=== PATIENT | female | born 1950 | race Two or more races ===

== ENCOUNTER 2018-05-20 17:03 | Observation (INO) | payer MEDICARE, BC ==
[~2018-05-20] VITALS: Ht 170.2 cm; Wt 96.4 kg
--- NOTE | ~2018-05-20 | DS ---
PATIENT:KELLY ROBERTS :[birth year] MEDICAL RECORD: [id number] DISCHARGE SUMMARY ADMISSION DATE: 05/20/18 DISCHARGE DATE: 05/21/18 DATE OF DISCHARGE: 05/21/2018. DIAGNOSIS: Atrial fibrillation. HOSPITAL COURSE: Ms. Roberts presents with palpitations, tachycardia, found to be in atrial fibrillation with rapid ventricular response, given Cardizem and sotalol, converted to sinus rhythm and was discharged home on sotalol. Follow up with [facility] in a month. TRANSINT:[id number] Voice Confirmation ID: [id number] DOCUMENT ID: [id number] FREDERICK VALIENTE MD at 1950 CC: [id number] DICTATION DATE: 07/02/18 1154 CUT OFF MACHINE HELPER: 07/02/18 1228 DIS IN 05/21/18 [address] [place] [address]
--- NOTE | ~2018-05-20 | EC ---
PATIENT:KELLY ROBERTS DATE OF SERVICE: 05/20/18 SEX: F MEDICAL RECORD: [id number] DATE OF : [birth year] LOCATION:D.M2 D.211 AGE OF PATIENT: 68 ADMISSION DATE: 05/20/18 REFERRING PHYSICIAN: INTERPRETING PHYSICIAN: FREDERICK BAKER MD ECHOCARDIOGRAM REPORT ECHO CHARGES 4 ECHO COMPLETE Date: 05/21 CLINICAL DIAGNOSIS: A-FLUTTER ECHOCARDIOGRAPHIC MEASUREMENTS (adult normal given) AC root (d.<3.7cm) 2.9 cm LV Septum d (<1.2 cm> 1.5 cm Valve Excursion 1.8 cm LV Septum (systole) 2. cm Left Atria (s.<4.0cm> 3.8 cm LVPW d(<1.2cm) 1.3 cm RV (d.<2.3cm) 2.8 cm LVPW (sytole) 1.9 cm LV diastole(<5.6CM) 6.0 cm MV E-F(>70mm/sec) cm LV systole 3.3 cm LVOT Diameter 1.9 cm MV exc.(>10mm) cm Est.ejection fraction (50-75%) % DOPPLER: LVIT cm/sec A 52.0 cm/sec E 129 cm/sec LA cm/sec RVSP 49.1 mmHg LVOT 89.0 cm/sec AOP1/2T m/s Asc. Ao 136 cm/sec RVOT 71.0 cm/sec RA cm/sec PA 88.0 cm/sec AV Gradient Peak 7.4 mmHg AV Mean 3.8 mmHg AV Area 1.9 cm MV Gradient Peak 7.6 mmHg MV Mean 2.4 mmHg MV Area cm COMMENTS: Game Room Attendant: 1 MICKEY FLETCHEROE Lung Splitter: 1 Dr. Baker TAPE# PACS Pericardial Effusion N DATE OF SERVICE: FINDINGS: 1. Left ventricular chamber size is within normal limits. Left ventricular systolic function is normal. Overall ejection fraction estimated at 55%. 2. Left atrium, right atrium, and right ventricle chamber sizes are within normal limits. 3. Valvular structures have normal structure and motion. 4. Doppler interrogation reveals moderate mitral regurgitation, mild tricuspid regurgitation, no other valvular insufficiency or stenosis; however, pulmonary ECHOCARDIOGRAM REPORT [id number] KELLY ROBERTS systolic pressure is elevated estimated at 49 mmHg. 5. No evidence of pericardial effusion or left ventricular thrombus. TRANSINT:[id number] Voice Confirmation ID: [id number] DOCUMENT ID: [id number] FREDERICK BAKER MD at 1325 CC: [id number] DICTATION DATE: 05/21/18 1113 CARBURETOR REPAIRER: 05/21/18 1151 DIS IN 05/21/18 [facility] [address] [id number]
[2018-05-20] MEDS ORDERED: AMITRIPTYLINE H50 MG PO (17:22)
[2018-05-20] MEDS ORDERED: CALCIUM 500 + D1 TAB PO (17:23)
[2018-05-20] MEDS ORDERED: ASPIRIN EC81 M1 PO (17:23)
[2018-05-20] MEDS ORDERED: LASIX20 MG PO (17:24)
[2018-05-20] MEDS ORDERED: SURFAK240 MG PO (17:24)
[2018-05-20] MEDS ORDERED: VITAMIN B-1000 MCG/M SQ (17:24)
[2018-05-20] MEDS ORDERED: HUMALOG 30100 UNITS/ SC (17:26)
[2018-05-20] MEDS ORDERED: ZESTRIL40 MG PO (17:26)
[2018-05-20] MEDS ORDERED: LANTUS INSULIN10 ML SQ (17:26)
[2018-05-20] MEDS ORDERED: MAGNESIUM OXID500 MG PO (17:27)
[2018-05-20] MEDS ORDERED: BIOTIN5 MG PO (17:28)
[2018-05-20] MEDS ORDERED: LIVALO1 MG PO (17:29)
[2018-05-20 18:00] VITALS: BP 201/122
[2018-05-20 18:14] LABS: APPEARANCE CLEAR (CLEAR); BILIRUBIN NEGATIVE (NEGATIVE); COLOR YELLOW (YELLOW); GLUCOSE NEGATIVE (NEGATIVE); KETONE NEGATIVE (NEGATIVE); NITRITE NEGATIVE (NEGATIVE); PROTEIN TRACE mg/dL (NEGATIVE); UROBILINOGEN NORMAL (NORMAL)
[2018-05-20 18:16] LABS: BACTERIA MODERATE /hpf (NONE SEEN); EPITHELIAL CELLS 0-5 /hpf (0-5); WHITE CELLS - URINE 0-5 /hpf (0-5)
[2018-05-20 18:18] LABS: BASOPHILS 0.6 % (0-2); HEMATOCRIT 28.8 % (36.0-48.0); HEMOGLOBIN 10.1 g/dL (12-16); IMMATURE GRANULOCYTES 0.2 % (0-5); LYMPHOCYTES 23.9 % (15-50); MCH 30.3 pg (26.0-34.0); MCHC 35.1 g/dL (31.0-37.0); MCV 86.5 fL (80.0-100.0); MEAN PLATELET VOLUME 9.1 fL (7.4-10.4); MONOCYTES 6.6 % (2-11); NEUTROPHILS 66.7 % (40-80); PLATELET COUNT 288 10x3/uL (130-400); RBC 3.33 10x6/uL (4.00-5.40); RDW 12.3 % (11.5-14.5)
[2018-05-20 18:26] VITALS: BP 187/110
[2018-05-20 18:40] VITALS: BP 153/84
[2018-05-20 18:53] LABS: ALBUMIN 3.6 g/dL (3.4-5.0); ALKALINE PHOSPHATASE 84 U/L (46-116); ALT (SGPT) 21 U/L (10-68); BILIRUBIN - TOTAL 0.48 mg/dL (0.2-1.3); CALC OSMOLALITY 286 mosm/kg (275-300); CALCIUM 8.6 mg/dL (8.5-10.1); CARBON DIOXIDE 26.5 mmol/L (21.0-32.0); CHLORIDE - SERUM 101 mmol/L (98-107); CREATININE - SERUM 2.1 mg/dL (0.6-1.3); GLUCOSE 183 mg/dL (74-106); POTASSIUM - SERUM 4.1 mmol/L (3.5-5.1); PROTEIN - SERUM 7.1 g/dL (6.4-8.2); SODIUM 137 mmol/L (136-145); UREA NITROGEN 34 mg/dL (7-18); eGFR NON AFRICAN AMERICAN 25 mL/min (90-120)
[2018-05-20 19:01] VITALS: BP 150/79
[2018-05-20 19:02] LABS: CKMB 2.6 U/L (0.0-3.6)
[2018-05-20 19:03] LABS: APTT 25.2 SECONDS (22.8-39.4); INR 0.99 (0.85-1.17); PROTIME 12.7 SECONDS (11.6-15.0)
[2018-05-20 19:05] LABS: TROPONIN-I < 0.017 ng/mL (0.000-0.060)
[2018-05-20 19:33] LABS: MAGNESIUM - SERUM 1.8 mg/dL (1.8-2.4)
[2018-05-20 20:00] VITALS: BP 147/92; BP 192/104
[2018-05-21] VITALS: BP 126/55
[2018-05-21 04:00] VITALS: BP 132/70
[2018-05-21 04:16] LABS: ANION GAP 10.5 mmol/L (8-16); CALCIUM 8.3 mg/dL (8.5-10.1); CARBON DIOXIDE 27.3 mmol/L (21.0-32.0); CREATININE - SERUM 2.1 mg/dL (0.6-1.3); POTASSIUM - SERUM 3.8 mmol/L (3.5-5.1)
[2018-05-21 05:30] VITALS: BP 194/102; BMI 33.3
[2018-05-21 08:36] VITALS: Ht 170.2 cm; Wt 96.4 kg
[2018-05-21 08:54] VITALS: BP 138/74
[2018-05-21] MEDS ORDERED: CARDIZEM CD240 MG PO (12:42)
== END 2018-05-21 13:24 | disposition home or self-care (01) ==
LOC: D.ER 17:03 → D.M2 19:39 → OBSVTIME 19:40 → D.M2 05-21 13:24
PROVIDERS: Emergency Medicine; Family Medicine
DX: I48.92 Unspecified atrial flutter (principal); I10 Essential (primary) hypertension; E78.5 Hyperlipidemia, unspecified; E11.9 Type 2 diabetes mellitus without complications; E86.0 Dehydration; N17.9 Acute kidney failure, unspecified

== ENCOUNTER 2018-06-27 10:54 | Outpatient (CLI) | payer MEDICARE, BC ==
[~2018-06-27] VITALS: Ht 170.2 cm; Wt 100.0 kg
--- NOTE | ~2018-06-27 | HEMODYNAMI ---
PATIENT:KELLY ROBERTS MEDICAL RECORD: [id number] : 48 LOCATION:[facility]IE ADMISSION DATE: 06/27/18 Generatedon:06/27/201813:25 Patient name: KELLY ROBERTS Patient #: [id number] SSN: : 1950 Date of study: 06/27/2018 Page: Of Hemodynamic Procedure Report Patient Data Patient Demographics Procedure consent was obtained First Name: KELLY Gender: Female Last Name: AELJANDRA : 1950 Patient #: [id number] Age: 68 year(s) Race: Other Additional ID: [id number] Contact details [address]: [address] [place] [address] State: [place] City: [place] Zip code: [address] Admission Admission Data Admission Date: 06/27/2018 Admission Time: 10:54 Admit Source: Other Procedure Procedure Types Cath Procedure Diagnostic Procedure LHC LHC w/Coronaries Procedure Description Procedure Date Procedure Date: 06/27/2018 Procedure Start Time: 13:14 Procedure End Time: 13:22 Procedure Staff Name Function Yaya Wiley MD Performing Physician Yoel Bui RT Monitor Sai Jurado RT Scrub Beau Pace RN Nurse Procedure Data Cath Procedure Fluoroscopy Diagnostic fluoroscopy Total fluoroscopy Time: 1.5 time: 1.5 min min Diagnostic fluoroscopy Total fluoroscopy dose: 244 dose: 244 mGy mGy Contrast Material Contrast Material Type Amount (ml) Isovue 300 50 Entry Location Entry Primary Successful Side Size Upsize Upsize Entry Closure Gamino ccessful Closure Location (Fr) 1 (Fr) 2 (Fr) Remarks Device Remarks Radial Right 6 Fr Mechanical artery Short Compression Estimated blood loss: 10 ml Diagnostic catheters Device Type Used For End Catheter Placement DIAGNOSTIC [place] 110cm 5 Procedure Fr catheter ([id number]) Procedure Complications No complications Procedure Medications Medication Administration Route Dosage Oxygen etCO2 Nasal cannula 2 l/min Heparin Flush Bag added to field 2 bags (1000units/500ml NS) 0.9% NaCl I.V. 100 ml/hr Radial Cocktail added to field 1 syringe (Verapomil 2mg/Nitro 400mcg/Heparin 1500units) Fentanyl I.V. 25 mcg Versed I.V. 0.5 mg Fentanyl I.V. 25 mcg Versed I.V. 0.5 mg Radial Cocktail I.A. 1 syringe (Verapomil 2mg/Nitro 400mcg/Heparin 1500units) Fentanyl I.V. 50 mcg Versed I.V. 1 mg Hemodynamics Rest Heart Rate: 63 (bpm) Pressure Samples Time Site Value (mmHg) Purpose Heart Use Rate(bpm) 13:17 LV 160/14,22 Snapshot 61 13:17 AO 147/86(112) Pullback 60 13:17 LV 120/21,10 Pullback 60 Gradients Valve Time Site 1 Site 2 Mean SEP/DFP Peak To Heart Use (mmHg) (sec/min) Peak Rate (mmHg) (bpm) Aortic 13:17 LV AO 0 60 120/21,10 147/86(112) Calculations Valve P-P Mean Valve Index Valve Source Name Gradient Area Flow (cm2) Aortic 0 0 Snapshots Pre Cath Intra NCS Post Cath Vital Signs Time Heart Resp SPO2 etCO2 NIBP (mmHg) Rhythm Pain Sedation Rate (ipm) (%) (mmHg) Status Level (bpm) 13:06:01 62 17 93 27 175/93(157) NSR 0 (11) 10(A) , No pain 13:10:33 61 17 93 30.1 179/99(159) NSR 0 (11) 10(A) , No pain 13:15:08 61 17 93 24 177/100(147) NSR 0 (11) 10(A) , No pain 13:19:32 58 16 92 28.6 158/81(137) NSR 0 (11) 9(A) , No pain 13:23:33 60 17 92 21.8 159/89(139) NSR 0 (11) 9(A) , No pain Medications Time Medication Route Dose Verified Delivered Reason Notes Effectiveness by by 13:04:43 Oxygen etCO2 2 l/min Yaya Yanez Per Nasal [facility] Amos Pace RN physician cannula 13:04:52 Heparin Flush added 2 bags Yaya Yanez used for Bag to [facility] Amos Pace wing commander (1000units/500ml field PHELAN NS) 13:05:02 0.9% NaCl I.V. 100 Yaya Yanez Per ml/hr St Amos Pace RN physician 13:05:10 Radial Cocktail added 1 Yaya Yanez used for (Verapomil to syringe [facility] Amos Pace wing commander 2mg/Nitro field PHELAN 400mcg/Heparin 1500units) 13:09:19 Fentanyl I.V. 25 mcg Yaya Yanez for sedation St Amos Pace RN, MD 13:09:25 Versed I.V. 0.5 mg Yaya Yanez for sedation St Amos Pace RN, MD 13:13:39 Fentanyl I.V. 25 mcg Yaya Yanez for sedation St Amos Pace RN, MD 13:13:44 Versed I.V. 0.5 mg Yaya Yanez for sedation St Amos Pace RN, MD 13:16:16 Radial Cocktail I.A. 1 Yaya Javier for (Verapomil syringe [place] [facility] [place] vasodilation 2mg/Nitro MD PHELAN 400mcg/Heparin 1500units) 13:16:24 Fentanyl I.V. 50 mcg Yaya Javier for sedation St Amos Wiley MD, MD 13:16:27 Versed I.V. 1 mg Yaya Barkerory for sedation St Amos Wiley MD, MD Procedure Log Time Note 12:40:12 Yoel Bui RT(R) sent for patient. Start room use. 12:40:40 Informed consent obtained and on chart 12:40:44 Admit Source: Other 12:41:08 Diagnostic Cath status Elective 12:51:37 Patient received from Pre/Post Procedure Room to CCL 3 Alert and oriented. Tansferred to table in Supine position. 12:51:38 Warm blankets applied, and lita hugger turned on for patient comfort. 12:51:39 Correct patient and procedure confirmed by team. 12:51:39 ECG and BP/O2 sat monitors applied to patient. 12:51:50 H&P Date Dictated: 06/25/2018 Within 30 days and on chart., H&P Addendum completed by physician on day of procedure. (MUST COMPLETE FOR ALL OUTPATIENTS). 13:04:39 Vital chart was started 13:04:43 Oxygen 2 l/min etCO2 Nasal cannula was administered by Beau Pace RN; Per physician; 13:04:52 Heparin Flush Bag (1000units/500ml NS) 2 bags added to field was administered by Beau Pace RN; used for procedure; 13:05:02 0.9% NaCl 100 ml/hr I.V. was administered by Beau Pace RN; Per physician; 13:05:10 Radial Cocktail (Verapomil 2mg/Nitro 400mcg/Heparin 1500units) 1 syringe added to field was administered by Beau Pace RN; used for procedure; 13:05:20 Baseline sample Acquired. 13:05:26 Rhythm: sinus rhythm 13:05:28 Full Disclosure recording started 13::29 Pre-procedure instructions explained to patient. 13:05:29 Pre-op teaching completed and patient verbalized understanding. 13:05:34 Family in patients room. 13:05:42 Is the patient allergic to Iodine/contrast media? No. 13:05:59 Patient NPO since Midnight. 13:06:03 Is patient on blood thinner?No 13:06:23 Patient diabetic? Yes. 13:06:25 If diabetic: On Metformin? No 13:06:29 Previous problem with sedation/anesthesia? No ? 13:06:31 Snore? No 13:06:32 Sleep apnea? No 13:06:34 Deviated septum? No 13:06:34 Opens mouth fully? Yes 13:06:35 Sticks out tongue? Yes 13:06:42 Airway obstruction? No ? 13:06:45 Dentures? No ? 13:06:49 Pre procedure: right dorsailis pedis pulse 1+ Palpable, but thready & weak; easily obliterated 13:06:56 Modified Usama's test Ulnar < 7 seconds 13:07:04 Patient pain scale 0/10 ?. 13:07:10 IV patent on arrival in left hand with 0.9% NaCl at O. 13:07:13 Lab results completed and on chart. 13:07:19 Right Radial & Right Groin area was prepped with chlora-prep and draped in sterile fashion 13:07:21 Alarms reviewed by R. N. 13:07:21 Sharps counted by scrub and verified by R.N. 13:08:56 --------ALL STOP TIME OUT------ 13:08:57 Final Timeout: patient, procedure, and site verified with staff and physician. All members of the team are in agreement. 13:09:00 Right Radial & Right Groin site verified by team. 13:09:02 Physical assessment completed. ASA score P 2 - A patient with mild systemic disease as per Yaya Wiley MD. 13:09:06 Sedation plan: IV Moderate Sedation Medication:Versed, Fentanyl 13:09:19 Fentanyl 25 mcg I.V. was administered by Beau Pace RN; for sedation; 13:09:25 Versed 0.5 mg I.V. was administered by Beau Pace RN; for sedation; 13:13:39 Fentanyl 25 mcg I.V. was administered by Beau Pace RN; for sedation; 13:13:44 Versed 0.5 mg I.V. was administered by Beau Pace RN; for sedation; 13:14:11 Use device set Radial Dx or PCI 13:14:15 ACIST Manifold (69064) opened to sterile field. 13:14:16 Tegaderm 4 x 4 (1626W) opened to sterile field. 13:14:17 ACIST Hand Control (46001) opened to sterile field. 13:14:18 ACIST Syringe (35046) opened to sterile field. 13:14:18 Medline Cath Pack ([id number]) opened to sterile field. 13:14:19 Bag Decanter (2002S) opened to sterile field. 13:14:19 DIAGNOSTIC WIRE .035 260cm J wire (322646) opened to sterile field. 13:14:20 MBrace Wrist Support ([id number]) opened to sterile field. 13:14:22 SHEATH 6Fr Prelude Radial ([id number]) opened to sterile field. 13:14:27 Procedure started. 13:14:32 Local anesthetic to right radial artery with Lidocaine 2% by Yaya Wiley MD.INITIAL ACCESS ONLY 13:15:01 Zero performed for pressure channel P1 13:15:20 A 6 Fr Short sheath was inserted into the Right Radial artery 13:16:09 A DIAGNOSTIC [place] 110cm 5 Fr catheter (673970) was advanced over the wire and used for Procedure. 13:16:16 Radial Cocktail (Verapomil 2mg/Nitro 400mcg/Heparin 1500units) 1 syringe I.A. was administered by Yaya Wiley MD; for vasodilation; 13:16:24 Fentanyl 50 mcg I.V. was administered by Yaya Wiley MD; for sedation; 13:16:27 Versed 1 mg I.V. was administered by Yaya Wiley MD; for sedation; 13:17:37 LV angiography performed. 13:17:39 LV gram done using OLIVARES 13:17:55 EF : 40 % 13:18:41 LV hemodynamics recorded. 13:18:44 Injector settings: Ml/sec: 7, Volume: 15, 13:18:48 LCA angiography performed. 13:19:23 RCA angiography performed. 13:19:40 Catheter removed. 13:19:42 TR BAND Standard ([id number]) opened to sterile field. 13:19:53 Sheath removed intact; hemostasis achieved with Mechanical Compression to the Right Radial artery. 13:19:57 Insertion/operative site no bleeding no hematoma. 13:19:59 TR band inflated with 12cc of air. 13:20:02 Procedure ended.(Physican Out) 13:20:41 Fluoroscopy time 01.50 minutes. 13:20:45 Fluoroscopy dose: 244 mGy 13:20:45 Flurop Dose total: 244 13:20:49 Contrast amount:Isovue 300 50ml. 13:20:51 Sharps counted by scrub and verified by R.N. 13:20:55 Post Procedure Pulses reassessed and unchanged 13:20:58 Post-procedure physical assessment completed. ASA score P 2 - A patient with mild systemic disease as per Yaya Wiley MD. 13:21:00 Post procedure rhythm: unchanged. 13:21:03 Estimated blood loss: 10 ml 13:21:05 Post procedure instruction explained to patient.Patient verbalizes understanding. 13:21:05 Patient needs reinforcement of post procedure teaching. 13:21:11 Procedure and supply charges have been captured, reviewed, submitted and are correct. 13:21:15 Procedure Complication : No complications 13:21:58 Vital chart was stopped 13:21:58 See physician's report for complete and final results. 13:22:01 Report given to Pre/Post Procedure Room. 13:22:03 Patient transfered to Pre/Post Procedure Room with Stretcher. 13:22:06 Procedure ended. 13:22:06 Full Disclosure recording stopped 13:24:58 End room use (Document Last) Device Usage Item Name Manufacture Quantity Catalog Number Hospital Part Current M inimal Lot# / Charge Number Stock Stock Serial# Code ACIST Manifold Acist 1 53560 651856 066979 994920 5 (63931) [employer] Inc Tegaderm 4 x 4 3M 1 1626W 107312 071496 990893 5 (1626W) ACIST Hand Acist 1 78545 714532 090252 746372 5 Control (06661) [employer] Inc ACIST Syringe Acist 1 32666 277369 670880 859821 2 0 (26248) [employer] Systems Inc Medline Cath Cardinal 1 [id number] 013131 08571 865696 5 Pack Health ([id number]) Bag Decanter Microtek 1 2002S 042343 59677 939414 5 (2001S) Medical Inc. DIAGNOSTIC WIRE [facility] [place] 1 456053 176619 131652 498076 3 0 .035 260cm J wire (178180) MBrace Wrist Advanced 1 140-0250-00 381608 69997 875331 5 Support Vascular ([id number]) Dynamics SHEATH 6Fr Merit 1 [id number] 064955 387710 879870 5 Prelude Radial Medical ([id number]) DIAGNOSTIC Terumo 1 40-8741 830201 133803 334169 5 [place] 110cm 5 Fr catheter (348612) TR BAND Terumo 1 TWO73-FMX 631963 437961 446662 4 0 Standard ([id number]) Signature Audit [place] Stage Time Signature Unsigned Intra-Procedure 06/27/2018 Yoel Bui 1:25:16 PM RT(R) Signatures Monitor : Yoel Bui RT Signature : Date : Time : [facility] [address] [place] [address]
--- NOTE | ~2018-06-27 | OP ---
PATIENT NAME: KELLY ROBERTS MEDICAL RECORD: [id number] :48 LOCATION:D.CAT ADMISSION DATE: SURGEON: YEIMY BLANCHARD MD DATE OF OPERATION: 06/27/2018 PROCEDURE: Left heart catheterization, selective coronary angiography, right radial approach. CATHETERS: [place] catheter, radial sheath. The procedure was well tolerated. The patient returned to the pineda. Sheath was removed. TR band was placed. FINDINGS: Left ventriculography in 30-degree OLIVARES view shows global hypokinesis. Overall function is reduced at 35% to 40%. CORONARY ANATOMY: LEFT MAIN: Left main is free of disease. LAD: Free of disease in the diagonal system. CIRCUMFLEX: Free of disease in the marginal system. RIGHT CORONARY ARTERY: Dominant artery, gives rise to PDA, free of disease. IMPRESSION: Nonischemic cardiomyopathy. EF is mildly reduced. This may be secondary to previous AFib and tachy mediated versus viral versus other. We will start ARB and change out Entresto depending on symptomology. Further recommendations based on above. TRANSINT:[id number] Voice Confirmation ID: [id number] DOCUMENT ID: [id number] YEIMY BLANCHARD MD at 1630 CC: [id number] DICTATION DATE: 06/27/18 1352 IMPORTER OR EXPORTER: 06/27/18 1418 [facility] CLI 06/27/18 [id number] [place] [address]
[~2018-06-27 10:54] MED LIST: AMITRIPTYLINE H50 MG PO; ASPIRIN EC81 M1 PO; BIOTIN5 MG PO; CALCIUM 500 + D1 TAB PO; CARDIZEM CD240 MG PO; HUMALOG 30100 UNITS/ SC; LANTUS INSULIN10 ML SQ; LASIX20 MG PO; LIVALO1 MG PO; MAGNESIUM OXID500 MG PO; SURFAK240 MG PO; VITAMIN B-1000 MCG/M SQ; ZESTRIL40 MG PO
[2018-06-27 11:36] VITALS: BP 180/83; Ht 170.2 cm; Wt 100.0 kg
[2018-06-27 12:07] LABS: BASOPHILS 0.3 % (0-2); EOSINOPHILS 2.6 % (0-7); HEMATOCRIT 28.8 % (36.0-48.0); HEMOGLOBIN 9.8 g/dL (12-16); IMMATURE GRANULOCYTES 0.3 % (0-5); LYMPHOCYTES 22.2 % (15-50); MCH 29.3 pg (26.0-34.0); MEAN PLATELET VOLUME 9.5 fL (7.4-10.4); MONOCYTES 5.8 % (2-11); NEUTROPHILS 68.8 % (40-80); PLATELET COUNT 284 10x3/uL (130-400); RBC 3.35 10x6/uL (4.00-5.40); RDW 12.7 % (11.5-14.5); WBC 7.4 10x3/uL (4.8-10.8)
[2018-06-27 12:17] LABS: ANION GAP 11.4 mmol/L (8-16); CALCIUM 8.4 mg/dL (8.5-10.1); CARBON DIOXIDE 26.8 mmol/L (21.0-32.0); CREATININE - SERUM 2.1 mg/dL (0.6-1.3); POTASSIUM - SERUM 4.2 mmol/L (3.5-5.1)
[2018-06-27] MEDS ORDERED: HYZAAR 100-25 T1 TAB PO (13:51)
== END 2018-06-27 15:28 | disposition home or self-care (01) ==
LOC: D.CATH 10:54
PROVIDERS: Internal Medicine Interventional Cardiology
DX: I42.8 Other cardiomyopathies (principal); Z01.812 Encounter for preprocedural laboratory examination

== ENCOUNTER 2018-11-23 12:03 | Observation (INO) | payer MEDICARE, BC ==
[~2018-11-23] VITALS: Ht 170.2 cm; Wt 82.4 kg
[~2018-11-23 12:03] MED LIST changes: +HYZAAR 100-25 T1 TAB PO
[2018-11-23] MEDS ORDERED: ALDACTONE50 MG PO (12:17)
[2018-11-23] MEDS ORDERED: CIPRO500 MG PO (12:18)
[2018-11-23 12:28] LABS: BASOPHILS 0.3 % (0-2); EOSINOPHILS 1.3 % (0-7); HEMATOCRIT 34.2 % (36.0-48.0); IMMATURE GRANULOCYTES 0.2 % (0-5); LYMPHOCYTES 15.9 % (15-50); MCH 29.8 pg (26.0-34.0); MCHC 35.1 g/dL (31.0-37.0); MCV 84.9 fL (80.0-100.0); MEAN PLATELET VOLUME 9.7 fL (7.4-10.4); MONOCYTES 5.2 % (2-11); NEUTROPHILS 77.1 % (40-80); PLATELET COUNT 336 10x3/uL (130-400); RBC 4.03 10x6/uL (4.00-5.40); RDW 12.6 % (11.5-14.5); WBC 8.6 10x3/uL (4.8-10.8)
[2018-11-23 12:43] LABS: ALBUMIN 3.6 g/dL (3.4-5.0); ALKALINE PHOSPHATASE 70 U/L (46-116); ALT (SGPT) 20 U/L (10-68); BILIRUBIN - TOTAL 0.82 mg/dL (0.2-1.3); CALC OSMOLALITY 290 mosm/kg (275-300); CALCIUM 10.4 mg/dL (8.5-10.1); CHLORIDE - SERUM 93 mmol/L (98-107); CREATININE - SERUM 4.1 mg/dL (0.6-1.3); GLUCOSE 198 mg/dL (74-106); POTASSIUM - SERUM 4.4 mmol/L (3.5-5.1); PROTEIN - SERUM 7.8 g/dL (6.4-8.2); SODIUM 132 mmol/L (136-145); UREA NITROGEN 68 mg/dL (7-18); eGFR NON AFRICAN AMERICAN 11 mL/min (90-120)
[2018-11-23 12:55] LABS: CKMB 2.2 U/L (0.0-3.6); CREATINE KINASE 106 UL (21-215); PRO BNP 1762 pg/mL (0-125); TROPONIN-I < 0.017 ng/mL (0.000-0.060)
--- NOTE | 2018-11-23 13:50 | NUR ---
PT UP TO RESTROOM WITH ASSIST. BACK TO BED WITHOUT INCODENT. URINE SENT TO LAB.
[2018-11-23 13:57] LABS: APPEARANCE HAZY (CLEAR); BILIRUBIN NEGATIVE (NEGATIVE); COLOR YELLOW (YELLOW); GLUCOSE NEGATIVE (NEGATIVE); KETONE NEGATIVE (NEGATIVE); NITRITE NEGATIVE (NEGATIVE); PROTEIN NEGATIVE (NEGATIVE); SPECIFIC GRAVITY 1.015 (1.005-1.020); UROBILINOGEN NORMAL (NORMAL)
[2018-11-23 14:05] LABS: BACTERIA MODERATE /hpf (NONE SEEN); EPITHELIAL CELLS OCC /hpf (0-5); RED CELLS - URINE OCC /hpf (0-5)
--- NOTE | 2018-11-23 15:00 | NUR ---
BACK TO BED WITH PT ASSIST.
--- NOTE | 2018-11-23 15:19 | NUR ---
NEW ADMIT FROM ER. BOUCHRAINTED TO ROOM. CALL LIGHT IN REACH. WILL CONT. PLAN OF CARE.
[2018-11-23 15:23] VITALS: BP 134/81; BMI 32.3
[2018-11-23 15:58] VITALS: BP 144/70
--- NOTE | 2018-11-23 19:39 | NUR ---
RESUMING CARE. PT IS ALERT LAYING IN BED WITH FAMILY AT BEDSIDE. NO C/O VOICED AT THIS TIME. BED IN LOW POSITION WITH CALL LIGHT IN REACH. SIDE RAILS UP X 2. WILL CONTINUE TO MONITOR PT AND FOLLOW PLAN OF CARE.
[2018-11-23 20:31] VITALS: BP 174/81
[2018-11-23 23:50] VITALS: BP 146/83
--- NOTE | 2018-11-24 00:12 | NUR ---
PATIENT USING CELL PHONE IN BED, STATED THAT EVERYTHING WAS OKAY RIGHT NOW. BED IN LOWEST POSITION, CALL LIGHT IN REACH. RESP EVEN AND UNLABORED. NO S/SX OF DISCOMFORT OR PAIN.
--- NOTE | 2018-11-24 00:13 | NUR ---
PATIENT IS RESTING QUIETLY IN BED, RESP EVEN AND UNLABORED. NO S/SX OF DISCOMFORT OR PAIN AT THIS TIME.
[2018-11-24 03:50] VITALS: BP 121/73
[2018-11-24 05:13] LABS: BASOPHILS 0.6 % (0-2); EOSINOPHILS 4.3 % (0-7); HEMATOCRIT 31.6 % (36.0-48.0); IMMATURE GRANULOCYTES 0.3 % (0-5); LYMPHOCYTES 30.3 % (15-50); MCH 29.6 pg (26.0-34.0); MCHC 34.8 g/dL (31.0-37.0); MCV 84.9 fL (80.0-100.0); MEAN PLATELET VOLUME 9.3 fL (7.4-10.4); MONOCYTES 8.2 % (2-11); NEUTROPHILS 56.3 % (40-80); PLATELET COUNT 273 10x3/uL (130-400); RBC 3.72 10x6/uL (4.00-5.40); RDW 12.6 % (11.5-14.5)
[2018-11-24 05:15] LABS: WBC 6.3 10x3/uL (4.8-10.8)
[2018-11-24 05:46] LABS: ANION GAP 14.7 mmol/L (8-16); CALCIUM 9.3 mg/dL (8.5-10.1); CREATININE - SERUM 3.4 mg/dL (0.6-1.3)
[2018-11-24 05:51] LABS: POTASSIUM - SERUM 3.7 mmol/L (3.5-5.1)
--- NOTE | 2018-11-24 06:03 | NUR ---
PT STATES SHE TAKES HUMALOG INSULIN. BUT HUMULIN REG INSULIN IS ON MAR TO GIVE. INSULIN WAS NOT GIVEN DUE TO PT GLUCOSE BEING 122 AT 2100 ON 11-23-18. TODAY'S GLUCOSE WAS 139 SO PT WAS NOT TREATED. THIS INFORMATION WILL BE PASS ON TO DAY SHIFT NURSE WHEN GIVEN REPORT.
--- NOTE | 2018-11-24 07:54 | NUR ---
RESTING QUIETLY MONITOR SHOWS SINUS RYTHM 71
--- NOTE | 2018-11-24 07:54 | NUR ---
PATIENT IS SITTING UP IN BED AT THIS TIME. SHE DENIES ANY NEEDS. SHE REPORTS THAT SHE WANTS TO BE DISCHARGED TODAY. SHE IS SITTING UP ON THE EDGE OF THE BED WITH LIGHTS ON.
[2018-11-24 08:08] VITALS: Ht 170.2 cm; Wt 82.4 kg
[2018-11-24] MEDS ORDERED: BYSTOLIC5 MG PO (08:15)
[2018-11-24 10:50] VITALS: BP 158/75
--- NOTE | 2018-11-24 13:16 | NUR ---
PATIENT HAS BEEN DISCHARGED. DISCHARGE TEACHING DONE AND PAPERS SIGNED. PATIENT HAS REMOVED ALL HER BELONGINGS FROM THE ROOM. IV REMOVED WITH CATHETER INTACT. PATIENT TOLERATED.
--- NOTE | 2018-11-26 08:09 | MORECARE ---
CASE MANAGEMENT DISCHARGE SUMMARY PATIENT: KELLY ROBERTS UNIT: [id number] ADM DATE: 11/23/18 AGE: 68 : [birth year] SEX: F ROOM/BED: D.2112 AUTHOR: NABEEL PEREZ PHYSICIAN: REFERRING PHYSICIAN: AMIE VIZCARRA MD DATE OF SERVICE: 11/26/18 Discharge Plan Patient Name: KELLY ROBERTS Facility: [facility]:[place] : 1950 Planned Disposition: Home Anticipated Discharge Date: 11/24/18 Discharge Date: 11/24/2018 Expected LOS: 1 Initial Reviewer: [email or web address] Initial Review Date: 11/26/2018 Generated: 11/26/18 9:09 am Patient Name: KELLY ROBERTS Page 70012 at 0809 All edits/amendments must be made on the electronic document DICTATION DATE: 11/26/18807 VACUUM PAN TENDER: DM 11/26/18 0808 RPT#: [id number] DC DATE:11/24/18 STATUS: DIS IN [facility] [address] [place] [address] END OF REPORT
== END 2018-11-24 13:24 | disposition home or self-care (01) ==
LOC: D.ER 12:03 → D.EDHOLD 13:44 → D.M2 13:44 → OBSVTIME 14:00 → D.M2 14:47
PROVIDERS: Family Medicine; ADMIT Family Medicine
DX: E86.0 Dehydration (principal); I42.9 Cardiomyopathy, unspecified; I48.0 Paroxysmal atrial fibrillation; E78.5 Hyperlipidemia, unspecified; I95.1 Orthostatic hypotension; N17.9 Acute kidney failure, unspecified; T50.1X5A Adverse effect of loop [high-ceiling] diuretics, initial encounter; T50.0X5A Adverse effect of mineralocorticoids and their antagonists, initial encounter; I12.9 Hypertensive chronic kidney disease with stage 1 through stage 4 chronic kidney disease, or unspecified chronic kidney disease; N18.9 Chronic kidney disease, unspecified; I25.10 Atherosclerotic heart disease of native coronary artery without angina pectoris; E11.9 Type 2 diabetes mellitus without complications; Z79.4 Long term (current) use of insulin

== ENCOUNTER → 2018-12-31 17:35 | Outpatient (CLI) | payer MEDICARE, BC ==
[2018-11-24 08:08] VITALS: BMI 28.4
[~2018-12-31 17:35] MED LIST changes: +ALDACTONE50 MG PO; +BYSTOLIC5 MG PO; +CIPRO500 MG PO
[2018-12-31 19:05] LABS: ANION GAP 18.3 mmol/L (8-16); CALCIUM 8.8 mg/dL (8.5-10.1); CARBON DIOXIDE 22.4 mmol/L (21.0-32.0); CREATININE - SERUM 2.1 mg/dL (0.6-1.3); POTASSIUM - SERUM 4.7 mmol/L (3.5-5.1)
== END | disposition home or self-care (01) ==
LOC: D.LABREF 17:35
PROVIDERS: ATTEND Nurse Practitioner Adult Health
DX: R60.9 Edema, unspecified (principal)

== ENCOUNTER → 2019-03-19 13:42 | Outpatient (CLI) | payer MEDICARE, BC ==
[2018-11-24 08:08] VITALS: BMI 28.4
--- NOTE | 2019-03-26 13:26 | EC ---
PATIENT:KELLY ROBERTS DATE OF SERVICE: 03/19/19 SEX: F MEDICAL RECORD: [id number] DATE OF : [birth year] LOCATION:D.[facility] AGE OF PATIENT: 69 ADMISSION DATE: 03/19/19 REFERRING PHYSICIAN: INTERPRETING PHYSICIAN: YEIMY BLANCHARD MD ECHOCARDIOGRAM REPORT ECHO CHARGES 4 ECHO COMPLETE Date: 03/19/19 CLINICAL DIAGNOSIS: CARDIOMYOPATHY/ MR/TR ECHOCARDIOGRAPHIC MEASUREMENTS (adult normal given) AC root (d.<3.7cm) 3.1 cm LV Septum d (<1.2 cm> 1.2 cm Valve Excursion 1.6 cm LV Septum (systole) 1.7 cm Left Atria (s.<4.0cm> 5.3 cm LVPW d(<1.2cm) 1.5 cm RV (d.<2.3cm) 4.2 cm LVPW (sytole) 1.7 cm LV diastole(<5.6CM) 5.7 cm MV E-F(>70mm/sec) cm LV systole 3.8 cm LVOT Diameter 2.0 cm MV exc.(>10mm) 1.6 cm Est.ejection fraction (50-75%) % DOPPLER: LVIT cm/sec A 37.0 cm/sec E 108 cm/sec LA cm/sec RVSP 51 mmHg LVOT 858 cm/sec AOP1/2T m/s Asc. Ao 106 cm/sec RVOT 68 cm/sec RA cm/sec PA 103 cm/sec AV Gradient Peak 4.52 mmHg AV Mean 2.07 mmHg AV Area 2.9 cm MV Gradient Peak 6.43 mmHg MV Mean 1.69 mmHg MV Area cm COMMENTS: [place] Cooper: 2 ELMER CROFT Harness Tier: 3 Dr. Judge TAPE# PACS Pericardial Effusion N DATE OF SERVICE: Adequate 2D, color flow imaging, spectral Doppler, and M-Mode Borderline LVH. LV internal dimensions are normal. Wall motion is normal. EF is greater than or equal to 55%. Aortic valve is tricuspid. No evidence of stenosis by Doppler interrogation. Left atrium is dilated 5.3 cm. Mitral valve shows no prolapse. Sfst-pm-fzocjfpd MR. Right-sided chambers are grossly normal. Mild TR. ECHOCARDIOGRAM REPORT [id number] KELLY ROBERTS TRANSINT:[id number] Voice Confirmation ID: [id number] DOCUMENT ID: [id number] YEIMY BLANCHARD MD at 1326 CC: [id number] DICTATION DATE: 03/20/19 1243 STEEL FINISHER: 03/20/19 1336 [facility] CLI 03/19/19 [id number] [place] [id number]
== END | disposition home or self-care (01) ==
LOC: D.HCCARDIO 09:30
PROVIDERS: ATTEND Internal Medicine Interventional Cardiology
DX: I42.9 Cardiomyopathy, unspecified (principal)

== ENCOUNTER 2020-06-26 06:05 | Day surgery (SDC) | payer MEDICARE, BC ==
[~2020-06-26] VITALS: Ht 170.2 cm; Wt 98.9 kg
--- NOTE | ~2020-06-26 | OP ---
PATIENT NAME: KELLY DAS MEDICAL RECORD: [id number] :48 LOCATION:D.OPS ADMISSION DATE: SURGEON: DIAN JAFFE MD DATE OF OPERATION: 06/26/2020 PREOPERATIVE DIAGNOSIS: Chronic kidney disease, IV. POSTOPERATIVE DIAGNOSIS: Chronic kidney disease, IV. OPERATION PERFORMED: Laparoscopic implantation of peritoneal dialysis catheter. SURGEON: Dian Jaffe MD ANESTHESIA: General endotracheal per TIE CARRIER. REFERRING PHYSICIAN: Eve Mejia DO PREOPERATIVE NOTE: Ms. Das is a 70-year-old white female patient with CKD, V, who is anticipated to need to initiate dialysis in the next few weeks. She was referred to me for placement of a peritoneal dialysis catheter. The patient has an obese abdomen and I planned an exit site in the left upper quadrant. It was not marked by the PD nurses unfortunately preop and I am marking in the operating room. DESCRIPTION OF PROCEDURE: Under general endotracheal anesthesia in supine position, the patient was prepped and draped in a sterile manner. Lira catheter had been inserted. I outlined on the lower abdomen the location of the symphysis pubis and using the supplied template mapped a left paramedian course for the catheter. These sites were marked along with proposed exit site in the left upper quadrant. I was using a Merit Classic Flex-Neck adult standard-sized dual-cuff coil catheter. A small incision was made in the left upper quadrant and a 5 mm port with a 0-degree laparoscope inserted and pneumoperitoneum established with carbon dioxide. The telescope was exchanged for a 30-degree scope and the patient placed in Trendelenburg position. On examination, I found she had no abdominal wall hernia. There was not excess omentum in the pelvis or significant adhesions. I then proceeded as we had initially set out. I made a vertical incision to the left of the midline and umbilicus and exposed the anterior rectus sheath where I placed a pursestring suture of 0 Vicryl. I then injected 0.25% Marcaine with epinephrine into the rectus sheath to hopefully prevent bleeding and then inserted a cannula from that site, then obliquely through the rectus muscle and preperitoneally done with laparoscopic observation to a point about midway between the umbilicus and the symphysis pubis before the cannula entered the peritoneal space. I then inserted a well-lubricated dialysis catheter through the peel-away plastic sheath from the cannula and then inserted the Dacron felt cuff into the rectus muscle below the level of the anterior rectus sheath and tied the pursestring suture. The blue stripe was on the anterior surface of the catheter. The catheter was then placed in a subcutaneous tunnel and exit site as planned. The catheter was then attached to a transfer device and then attached to a 1000 mL bag of IV saline, which then was run into the abdomen as rapidly as possible. The patient was placed in a level slight reverse Trendelenburg position and the fluid was then allowed to siphon back out into the bag after the leg was lowered to the level of floor and OPERATIVE REPORT [id number] KELLY DAS the catheter drained extremely well. The wounds were then infiltrated with 0.25% Marcaine without epinephrine and closed with interrupted inverted 3-0 Vicryl and running intracuticular 4-0 Stratafix. The 5 mm port was removed after allowing insufflated air to escape fully and the incision closed with Dermabond glue and Dermabond glue was applied to the paramedian incision as well. Both sites were dressed with Maxorb Ag, Tegaderm, and Cavilon skin prep. The dialysis catheter at the exit site was dressed with a chlorhexidine Biopatch and then coiled and covered with a 4 x 4 bordered gauze dressing. The patient was then awakened and in stable condition returned to the recovery room. Blood loss during the operation was insignificant and unreplaced. Sponges, instruments, and needles were accounted for and no specimen was submitted for histopathology and blood loss was about 5 mL and unreplaced. PLAN: The patient will be able to go home today and follow up with the peritoneal dialysis nurses early next week at [facility] to have her catheter flushed initially. I plan to see her back in my office in 2 weeks. She is to keep her dressings dry and clean until such time as her return to my office. She will not shower or bathe until okayed by the dialysis nurses at [facility]. She will resume normal activities as tolerated otherwise. Continue her same medications and diet. NTS:[id number] Voice Confirmation ID: [id number] DOCUMENT ID: [id number] DIAN JAFFE MD CC: ALEXA CLARK RN, EVE Garcia DO [id number] DICTATION DATE: 06/26/20 1014 PRODUCT ADVISOR: 06/26/20 2101 DEP SDC 06/26/20 [facility] [address] [facility] [place] [address]
[~2020-06-26 06:05] MED LIST changes: -VITAMIN B-1000 MCG/M SQ; +VITAMIN B-121000 MCG INJ
[2020-06-26 07:04] LABS: ANION GAP 14.9 mmol/L (8-16); CALCIUM 8.5 mg/dL (8.5-10.1); CARBON DIOXIDE 24.9 mmol/L (21.0-32.0); CREATININE - SERUM 5.2 mg/dL (0.6-1.3); POTASSIUM - SERUM 4.8 mmol/L (3.5-5.1)
[2020-06-26 07:12] LABS: EOSINOPHILS 3.3 % (0-7); HEMATOCRIT 33.4 % (36.0-48.0); HEMOGLOBIN 10.7 g/dL (12-16); IMMATURE GRANULOCYTES 0.2 % (0-5); LYMPHOCYTES 17.9 % (15-50); MCH 29.1 pg (26.0-34.0); MCV 90.8 fL (80.0-100.0); MEAN PLATELET VOLUME 8.9 fL (7.4-10.4); MONOCYTES 9.2 % (2-11); NEUTROPHILS 68.4 % (40-80); PLATELET COUNT 332 10x3/uL (130-400); RBC 3.68 10x6/uL (4.00-5.40); RDW 14.4 % (11.5-14.5); WBC 5.8 10x3/uL (4.8-10.8)
[2020-06-26 07:31] LABS: INR 1.04 (0.85-1.17); PROTIME 13.5 SECONDS (11.6-15.0)
[2020-06-26] MEDS ORDERED: HYDRALAZINE HC100 MG (07:33)
[2020-06-26] MEDS ORDERED: BISOPROLOL FUMAR5 MG (07:35)
[2020-06-26] MEDS ORDERED: BISOPROLOL FUMAR5 MG PO (07:36)
[2020-06-26] MEDS ORDERED: LEVEMIR FL100 UNIT/1 SC (07:39)
[2020-06-26] MEDS ORDERED: EPOGEN (07:42)
[2020-06-26] MEDS ORDERED: FUROSEMIDE20 MG PO (07:43)
[2020-06-26] MEDS ORDERED: ALDACTONE25 MG PO (07:45)
[2020-06-26] MEDS ORDERED: PROTONIX40 MG PO (07:45)
[2020-06-26] MEDS ORDERED: COZAAR100 MG PO (07:46)
[2020-06-26 08:03] VITALS: BP 194/92; Ht 170.2 cm; Wt 98.9 kg
[2020-06-26] MEDS ORDERED: HYDROCODON-ACE1 EAC7 PO (10:00)
--- NOTE | 2020-06-26 12:41 | NUR ---
1220 PT ASKED TO HAVE HER BS CHECKED. SHE FELT LIKE IT WAS DROPPING. BS IS 134.
--- NOTE | 2020-06-26 13:32 | NUR ---
1300 IV IN RIGHT HAND HAS CLOTTED OFF. NEW IV STARTED IN LEFT HAND WITH A 20G ANGIOCATH. NS (500CC) HUNG TO BOLUS PT WHO HAS NOT BEEN ABLE TO VOID AFTER 3 UNSUCCESSFUL ATTEMPTS. PT HAS BEEN DRINKING WATER AND TEA. 1330 PT STATES THAT SHE HAS A FULL FEELING AND CANNOT URINATE. A BLADDER SCAN SHOWS 125ML OF URINE IN BLADDER. PT DRINKING WATER. 300 CC OF NS HAS INFUSED.
--- NOTE | 2020-06-26 14:47 | NUR ---
1425 IV IN LEFT HAND DC'D. CATHETER TIP INTACT. NO BLEEDING AT SITE. COBAN DRESSING APPLIED TO SITE.
== END 2020-06-26 14:36 | disposition home or self-care (01) ==
LOC: D.OPS 06:05
PROVIDERS: ATTEND Surgery
DX: N18.4 Chronic kidney disease, stage 4 (severe) (principal)

== ENCOUNTER 2020-07-08 16:05 | Inpatient (IN) | payer MEDICARE, BC ==
[~2020-07-08] VITALS: Ht 170.2 cm; Wt 99.8 kg
[~2020-07-08 16:05] MED LIST changes: +ALDACTONE25 MG PO; +BISOPROLOL FUMAR5 MG; +BISOPROLOL FUMAR5 MG PO; +COZAAR100 MG PO; +EPOGEN; +FUROSEMIDE20 MG PO; +HYDRALAZINE HC100 MG; +HYDROCODON-ACE1 EAC7 PO; +LEVEMIR FL100 UNIT/1 SC; +PROTONIX40 MG PO
--- NOTE | 2020-07-08 17:22 | NUR ---
PT TO CT
[2020-07-08 17:32] LABS: BASOPHILS 0.4 % (0-2); EOSINOPHILS 2.4 % (0-7); HEMATOCRIT 29.8 % (36.0-48.0); HEMOGLOBIN 9.7 g/dL (12-16); IMMATURE GRANULOCYTES 0.1 % (0-5); LYMPHOCYTES 9.7 % (15-50); MCH 29.3 pg (26.0-34.0); MCHC 32.6 g/dL (31.0-37.0); MEAN PLATELET VOLUME 9.2 fL (7.4-10.4); MONOCYTES 6.3 % (2-11); NEUTROPHILS 81.1 % (40-80); PLATELET COUNT 317 10x3/uL (130-400); RBC 3.31 10x6/uL (4.00-5.40); RDW 14.3 % (11.5-14.5); WBC 7.9 10x3/uL (4.8-10.8)
[2020-07-08 17:37] LABS: ANION GAP 13.6 mmol/L (8-16); CALCIUM 8.4 mg/dL (8.5-10.1); CARBON DIOXIDE 25.9 mmol/L (21.0-32.0); POTASSIUM - SERUM 4.5 mmol/L (3.5-5.1)
[2020-07-08 17:52] LABS: ALBUMIN 3.2 g/dL (3.4-5.0); BILIRUBIN - TOTAL 0.44 mg/dL (0.2-1.3); PROTEIN - SERUM 6.8 g/dL (6.4-8.2)
[2020-07-08 17:57] LABS: MAGNESIUM - SERUM 2.2 mg/dL (1.8-2.4); PHOSPHOROUS 4.3 mg/dL (2.5-4.9)
[2020-07-08 18:18] VITALS: BP 204/92
[2020-07-08 19:00] VITALS: BP 191/76
[2020-07-08 19:13] LABS: BILIRUBIN NEGATIVE (NEGATIVE); KETONE NEGATIVE (NEGATIVE); NITRITE NEGATIVE (NEGATIVE); UROBILINOGEN NORMAL (NORMAL)
--- NOTE | 2020-07-08 19:47 | NUR ---
VANCOMYCIN INFUSING AT 250 ML/H WITH 5 ML REMAINING AT SHIFT CHANGE.
--- NOTE | 2020-07-08 20:03 | NUR ---
COVID SWAB PER PROTOCOL. TAKEN TO LAB
[2020-07-08 20:51] VITALS: BP 183/79; BMI 34.5
--- NOTE | 2020-07-08 22:00 | NUR ---
REPORT RECIEVED, WILL CONT POC. PT A&O, DAUGHTER AT BEDSIDE. NO S/S OF DISTRESS OBSERVED. RR EVEN AND UNLABORED. UPPER QUADS OF ABDOMEN ARE TENDER TO PALPATION. PT REQUESTS PAIN MED. WILL CONSULT WITH MD ABOUT ORDERS. WILL CONT TO MONITOR.
[2020-07-09] VITALS (7 sets, daily range): BP systolic 132–192; BP diastolic 59–751; Ht 170.2 cm; Wt 99.8 kg
--- NOTE | 2020-07-09 00:15 | NUR ---
PAGED RADIOLOGY ADMINISTRATOR FOR MD LADONNA ABOUT ORDERS FOR SLIDING SCALE, PTS LANTUS IS NOT AVAILABLE. CURRENT ACCUCHECK 200.
[2020-07-09 07:07] LABS: BASOPHILS 0.3 % (0-2); EOSINOPHILS 1.8 % (0-7); HEMATOCRIT 29.2 % (36.0-48.0); HEMOGLOBIN 9.4 g/dL (12-16); IMMATURE GRANULOCYTES 0.1 % (0-5); LYMPHOCYTES 7.9 % (15-50); MCH 28.7 pg (26.0-34.0); MCHC 32.2 g/dL (31.0-37.0); MCV 89.3 fL (80.0-100.0); MEAN PLATELET VOLUME 8.9 fL (7.4-10.4); MONOCYTES 6.4 % (2-11); NEUTROPHILS 83.5 % (40-80); PLATELET COUNT 283 10x3/uL (130-400); RBC 3.27 10x6/uL (4.00-5.40); RDW 14.4 % (11.5-14.5); WBC 7.6 10x3/uL (4.8-10.8)
--- NOTE | 2020-07-09 07:20 | NUR ---
RECIEVE REPORT. RESTING IN BED. DENIES ANY NEEDS AT THIS TIME. CONTINUE PLAN OF CARE AND SAFETY PRECAUTIONS.
[2020-07-09 07:22] LABS: % SATURATION 10 % (15-55); IRON 17 ug/dl (35-150); TOTAL IRON BIND CAPACITY 169 ug/dl (260-445); UNSAT IRON BIND CAPACITY 152 ug/dl (150-375)
[2020-07-09 07:37] LABS: ANION GAP 14.5 mmol/L (8-16); CALCIUM 8.3 mg/dL (8.5-10.1); CARBON DIOXIDE 22.9 mmol/L (21.0-32.0); CREATININE - SERUM 4.9 mg/dL (0.6-1.3); POTASSIUM - SERUM 4.4 mmol/L (3.5-5.1); VANCOMYCIN - RANDOM 9.7 ug/mL (10.0-20.0)
--- NOTE | 2020-07-09 10:43 | NUR ---
ALERT AND ORIENTED X4. SITTING UP ON SIDE OF BED. REPORTS N/V. ADMINISTER ZOFRAN ORDERED. CONSENTS SIGNED ON CHART FOR PROCEDURE.
--- NOTE | 2020-07-09 16:51 | NUR ---
TAKEN TO PROCEDURE VIA BED.
[2020-07-10] VITALS: BP 97/67
[2020-07-10 04:02] VITALS: BP 119/65
--- NOTE | 2020-07-10 04:26 | NUR ---
I have reviewed this patient and I concur with the Shift Assessment completed by the Licensed Practical Nurse today this shift.
[2020-07-10 06:48] LABS: BASOPHILS 0.1 % (0-2); EOSINOPHILS 0.1 % (0-7); HEMATOCRIT 26.8 % (36.0-48.0); HEMOGLOBIN 8.5 g/dL (12-16); IMMATURE GRANULOCYTES 0.3 % (0-5); LYMPHOCYTES 3.2 % (15-50); MCH 28.6 pg (26.0-34.0); MCHC 31.7 g/dL (31.0-37.0); MCV 90.2 fL (80.0-100.0); MEAN PLATELET VOLUME 9.1 fL (7.4-10.4); MONOCYTES 3.7 % (2-11); NEUTROPHILS 92.6 % (40-80); PLATELET COUNT 291 10x3/uL (130-400); RBC 2.97 10x6/uL (4.00-5.40); RDW 14.5 % (11.5-14.5)
[2020-07-10 06:54] LABS: WBC 15.2 10x3/uL (4.8-10.8)
[2020-07-10 07:06] LABS: ANION GAP 15.7 mmol/L (8-16); CALCIUM 7.8 mg/dL (8.5-10.1); CARBON DIOXIDE 23.4 mmol/L (21.0-32.0); CREATININE - SERUM 5.4 mg/dL (0.6-1.3); MAGNESIUM - SERUM 2.1 mg/dL (1.8-2.4); PHOSPHOROUS 4.5 mg/dL (2.5-4.9)
[2020-07-10 07:09] LABS: POTASSIUM - SERUM 5.1 mmol/L (3.5-5.1)
[2020-07-10 07:58] VITALS: BP 111/57
--- NOTE | 2020-07-10 08:05 | NUR ---
AM ROUNDING DONE WITH PATIENT BEING ON ROOM AIR. LEFT HAND PIV SEEN WITH SALINE LOCK. DRY INTACT DRESSING SEEN TO LEFT SIDE ABD AREA FROM SURGERY. DENIES ANY NEEDS AT THIS TIME. CALL LIGHT IN USE.
--- NOTE | 2020-07-10 10:15 | NUR ---
PLACED IN CONTACT ISOLATION FOR MRSA TO WOUND
--- NOTE | 2020-07-10 11:25 | NUR ---
POC GLUCOSE IS 130, PER SLIDING SCALE NO COVERAGE
[2020-07-10 11:53] VITALS: BP 160/72
--- NOTE | 2020-07-10 14:42 | NUR ---
DR JAFFE ON FLOOR ASKING WHY DRESSING CHANGES HAVE NOT BEEN DONE. THE DAKINS WAS NOT ORDERED CORRECTLY. DONE NOW FOR ORDER. WILL AWAIT SOULITON AND THEN WILL START DRESSING CHANGES.
--- NOTE | 2020-07-10 15:22 | MORECARE ---
CASE MANAGEMENT DISCHARGE SUMMARY PATIENT: KELLY ROBERTS UNIT: [id number] ADM DATE: 07/08/20 AGE: 70 : 49 SEX: F ROOM/BED: D.2102 AUTHOR: NABEEL PEREZ PHYSICIAN: REFERRING PHYSICIAN: RODRIGUE DOUGHERTY DO DATE OF SERVICE: 07/10/20 Discharge Plan Patient Name: KELLY ROBERTS Facility: [facility]:[place] : 1950 Planned Disposition: Home with Home Health Anticipated Discharge Date: Discharge Date: Expected LOS: Initial Reviewer: [email or web address] Initial Review Date: 07/10/2020 Generated: 07/10/20 4:21 pm DCPIA - Discharge Planning Initial Assessment Updated by [email or web address]: Mariah Morrissey on 07/10/20 3:17 pm * Is the patient Alert and Oriented? Yes * How many steps to enter\exit or inside your home? 1/0 * PCP Dr. Kumar * Pharmacy [facility] * Preadmission Environment Home Alone * ADLs Independent * Equipment Bedside Commode Walker * List name and contact numbers for known caregivers / representatives who currently or will assist patient after discharge: Deyanira Vaca - R - [phone] * Verbal permission to speak to the caregivers and representatives has been obtained from the patient. Yes * Community resources currently utilized None * Additional services required to return to the preadmission environment? Yes * Can the patient safely return to the preadmission environment? Yes * Has this patient been hospitalized within the prior 30 days at any hospital? No External Providers External Provider: [facility] Next Contact Date: Service Request Date: Service Type: Resolution: Reviewer: Comments: Patient Name: KELLY ROBERTS Page [phone] at 1522 All edits/amendments must be made on the electronic document DICTATION DATE: 07/10/20 152 BANQUET SUPERVISOR: IRENA 07/10/20 152 RPT#: [id number] DC DATE: STATUS: ADM IN [facility] [address] [place] [address] END OF REPORT
--- NOTE | 2020-07-10 15:30 | MORECARE ---
CASE MANAGEMENT DISCHARGE SUMMARY PATIENT: KELLY ROBERTS UNIT: [id number] ADM DATE: 07/08/20 AGE: 70 : 49 SEX: F ROOM/BED: D.2105 AUTHOR: NABEEL PEREZ PHYSICIAN: REFERRING PHYSICIAN: RODRIGUE DOUGHERTY DO DATE OF SERVICE: 07/10/20 Discharge Plan Patient Name: KELLY ROBERTS Facility: [facility]:[place] : 1950 Planned Disposition: Home with Home Health Anticipated Discharge Date: Discharge Date: Expected LOS: Initial Reviewer: [email or web address] Initial Review Date: 07/10/2020 Generated: 07/10/20 4:29 pm Comments DCP- Discharge Planning Updated by [email or web address]: Mariah Morrissey on 07/10/20 2:[address] Patient Name: KELLY ROBERTS Admission Status: ER Accout number: [id number] Admission Date: 07-08-2020 : 1950 Admission Diagnosis:INFECT/INFLM REACTION DUE TO PERITON DIALYSIS CATHETER, Attending: ROXANNE Current LOS: 2 Anticipated DC Date: Planned Disposition: Home with Home Health Primary Insurance: MEDICARE A & B Discharge Planning Comments: CM called patient to complete initial dc planning assessment (per Isolation protocol, I called her room). CM educated patient on the CM role and verbal consent given by patient to complete assessment. Patient lives at home alone. At discharge patient plans to return and feels this is a safe discharge. CM discussed availability of home health, rehab services, and medical equipment. I informed her that Dr. Castro would like her to have home health for daily dressing changes. She states she has never had home health before and states that her doctor states she may be able to go home on Monday, so whoever can see her the soonest. I called [address] [facility] and spoke with Gio and he states that he will make sure someone can see her on Monday if she goes home as early as tomorrow, clinical and order faxed. CM will need to fax final discharge orders and med rec to [facility] on discharge. CM will continue to follow and will assist as needed with dc plans/needs. Mailroom Clerk: Mariah Morrissey DCPIA - Discharge Planning Initial Assessment Updated by [email or web address]: Mariah Morrissey on 07/10/20 3:17 pm * Is the patient Alert and Oriented? Yes * How many steps to enter\exit or inside your home? 1/0 * PCP Dr. Kumar * Pharmacy [facility] * Preadmission Environment Home Alone * ADLs Independent * Equipment Bedside Commode Walker * List name and contact numbers for known caregivers / representatives who currently or will assist patient after discharge: Deyanira Vaca - [facility] - [phone] * Verbal permission to speak to the caregivers and representatives has been obtained from the patient. Yes * Community resources currently utilized None * Additional services required to return to the preadmission environment? Yes * Can the patient safely return to the preadmission environment? Yes * Has this patient been hospitalized within the prior 30 days at any hospital? No Coverage Notice Reviewer: [id number] - Mariah Morrissey Notice Issued Date-Time: 07/10/2020 15:25 Notice Type: Patient Choice Letter Notice Delivered To: Patient Relationship to Patient: Self Maple Products Supervisor Name: Delivery Method: PHONE - Phone Loreto Days: Prior Verbal Notification: Recipient Understood Notice: Yes Recipient Signature: Med Rec Note Co-signed by Attending: Coverage Notice Comment: SHAMIKA for [facility], [facility] or [place] Last DP export: 07/10/20 2:22 p Patient Name: KELLY ROBERTS Page 16472 at 1530 All edits/amendments must be made on the electronic document DICTATION DATE: 07/10/20 152 DIABETES MANAGER: IRENA 07/10/20 1529 RPT#: [id number] DC DATE: STATUS: ADM IN [facility] [address] [place] [address] END OF REPORT
[2020-07-10 16:10] VITALS: BP 152/69
--- NOTE | 2020-07-10 16:10 | NUR ---
LEFT PD SITE DRESSING CHANGED ORDERED. WOUND IS 6 CM X 4 CM. WOUND BED IS BEEFY RED WITH SOME SLIGHT BLEEDING NOTED WITH PACKING REMOVED. TO THE LEFT IS A SUAD SIZE AREA THAT HAS WHITE SLOUGH TO IT. DAKINS 11/02 ST. W-D QUAZE LIGHTLY PACKED INTO WOUND AND COVERED WITH DRY 4 X 4'S. TAPED WITH MEDIPORE TAPE AND DATED. TOLERATED WELL. POC GLUCOSED IS 178 AND COVERED WITH 4 UNITS PER SLIDING SCALE.
--- NOTE | 2020-07-10 19:00 | NUR ---
REPORT RECEIVED, WILL CONTINUE POC. PATIENT IS AAOX4, SITTING UP IN BED. NO S/S OF DISTRESS OBSERVED, RR EVEN AND UNLABORED ON ROOM AIR. PIV TO LT HAND, SL. PATIENT DENIES NEEDS AT THIS TIME. CL IN REACH, BED LOCKED AND LOWERED. WILL CTM.
[2020-07-10 22:07] VITALS: BP 161/76
[2020-07-11 02:07] VITALS: BP 150/98
--- NOTE | 2020-07-11 04:07 | NUR ---
I have reviewed this patient and I concur with the Shift Assessment completed by the Licensed Practical Nurse today this shift.
[2020-07-11 05:43] LABS: BASOPHILS 0.2 % (0-2); EOSINOPHILS 2.7 % (0-7); HEMATOCRIT 27.2 % (36.0-48.0); HEMOGLOBIN 8.8 g/dL (12-16); IMMATURE GRANULOCYTES 0.3 % (0-5); LYMPHOCYTES 4.3 % (15-50); MCH 28.9 pg (26.0-34.0); MCHC 32.4 g/dL (31.0-37.0); MCV 89.5 fL (80.0-100.0); MEAN PLATELET VOLUME 8.8 fL (7.4-10.4); MONOCYTES 6.5 % (2-11); PLATELET COUNT 311 10x3/uL (130-400); RBC 3.04 10x6/uL (4.00-5.40); RDW 14.7 % (11.5-14.5); WBC 12.7 10x3/uL (4.8-10.8)
[2020-07-11 05:51] VITALS: BP 155/68
[2020-07-11 06:14] LABS: ANION GAP 16.5 mmol/L (8-16); CALCIUM 8.1 mg/dL (8.5-10.1); CARBON DIOXIDE 21.8 mmol/L (21.0-32.0); CREATININE - SERUM 6.1 mg/dL (0.6-1.3); VANCOMYCIN - RANDOM 21.1 ug/mL (10.0-20.0)
[2020-07-11 06:20] LABS: POTASSIUM - SERUM 4.3 mmol/L (3.5-5.1)
[2020-07-11 07:00] VITALS: BP 167/65
[2020-07-11 11:00] VITALS: BP 168/75
--- NOTE | 2020-07-11 11:27 | NUR ---
PREFORMED WOUND CHAGNE PER WOUND CARE NURSING ORDER. PT TOLERATED. CL IN REACH, SRX2, FAMILY MEMBER IN ROOM.
[2020-07-11 15:00] VITALS: BP 156/75
--- NOTE | 2020-07-11 19:24 | NUR ---
I have reviewed this patient and I concur with the Shift Assessment completed by the Licensed Practical Nurse today this shift.
--- NOTE | 2020-07-11 21:26 | NUR ---
WOUND CARE PROVIDED PER ORDER. PATIENT TOLERATED WELL. CPOC.
[2020-07-11 21:52] VITALS: BP 177/78
--- NOTE | 2020-07-11 22:20 | NUR ---
PATIENT COMPLAINING ABOUT LEFT HAND IV. DOES NOT APPEAR TO BE RED OR SWOLLEN. IT APPEARS PATENT. PATIENT ADAMANT ABOUT DC'ING. REMOVED AND RESITED IV TO THE LEFT FOREARM WITH 22G X 1 ATTEMPT. RESUMED FLUIDS. PATIENT TOELRATED WELL. CPOC.
--- NOTE | 2020-07-12 01:51 | NUR ---
ASSISTED PATIENT TO THE BATHROOM. TOLERATED ASSISTANCE WELL. RETURNED BACK TO BED SAFELY. DENIES FURTHER NEEDS AT THIS TIME. CALL LIGHT CLOSE. CPOC.
[2020-07-12 02:00] VITALS: BP 166/77
[2020-07-12 06:19] VITALS: BP 163/73
[2020-07-12 06:38] LABS: BASOPHILS 0.6 % (0-2); EOSINOPHILS 4.9 % (0-7); HEMATOCRIT 26.2 % (36.0-48.0); HEMOGLOBIN 8.5 g/dL (12-16); IMMATURE GRANULOCYTES 0.6 % (0-5); LYMPHOCYTES 6.6 % (15-50); MCH 28.7 pg (26.0-34.0); MCHC 32.4 g/dL (31.0-37.0); MCV 88.5 fL (80.0-100.0); MONOCYTES 8.2 % (2-11); NEUTROPHILS 79.1 % (40-80); PLATELET COUNT 327 10x3/uL (130-400); RBC 2.96 10x6/uL (4.00-5.40); RDW 14.6 % (11.5-14.5)
[2020-07-12 06:41] LABS: WBC 8.5 10x3/uL (4.8-10.8)
[2020-07-12 07:15] LABS: ANION GAP 14.6 mmol/L (8-16); CALCIUM 7.8 mg/dL (8.5-10.1); CARBON DIOXIDE 20.7 mmol/L (21.0-32.0); CREATININE - SERUM 5.6 mg/dL (0.6-1.3); MAGNESIUM - SERUM 2.3 mg/dL (1.8-2.4); PHOSPHOROUS 4.1 mg/dL (2.5-4.9); POTASSIUM - SERUM 4.3 mmol/L (3.5-5.1)
[2020-07-12 08:12] VITALS: BP 167/80
[2020-07-12 11:40] VITALS: BP 186/88
--- NOTE | 2020-07-12 12:25 | NUR ---
PT AWAKE AND ORIENTED, SITTING ON SIDE OF BED FOR LUNCH. DAUGHTER AT BEDSIDE. ADMINISTERED LACTOLUSE, PT VERBALIZED UNDERSTANDING TO INFORM ME IF BM OCCURS. CHANGED DRESSING PER WOUND CARE INSTRUCTIONS. CHANGED I/V TUBING. NO COMPLAINTS OR CONCERNS STATED AT THIS TIME. CL IN REACH, SRX2.
--- NOTE | 2020-07-12 13:56 | NUR ---
I have reviewed this patient and I concur with the Shift Assessment completed by the Licensed Practical Nurse today this shift.
[2020-07-12 15:00] VITALS: BP 178/77
[2020-07-12 20:00] VITALS: BP 184/84
--- NOTE | 2020-07-12 21:51 | NUR ---
PT UPSET THAT CALL LIGHT DOES NOT GET ANSWERED IN A TIMELY MANNER. PT UPSET AND SAYS SHE HAS TO REMIND NURSING STAFF TO CHANGE HER ABD DRESSING, DESPITE THIS NURSING COMING TO DO THE DRESSING AT THIS TIME.
--- NOTE | 2020-07-12 23:04 | NUR ---
PT RECEIVED 1/2 OF A SALINE ENEMA
[2020-07-13] VITALS: BP 153/71
[2020-07-13 04:00] VITALS: BP 149/61
[2020-07-13 05:54] LABS: ANION GAP 13.3 mmol/L (8-16); CALCIUM 7.5 mg/dL (8.5-10.1); CARBON DIOXIDE 22.1 mmol/L (21.0-32.0); CREATININE - SERUM 5.3 mg/dL (0.6-1.3); POTASSIUM - SERUM 4.4 mmol/L (3.5-5.1)
[2020-07-13 07:26] VITALS: BP 141/53
--- NOTE | 2020-07-13 09:01 | NUR ---
PT ALERT AND ORIENTED. AMBULATED WITHOUT ASSISTANCE TO BATHROOM AND BACK, NO NOTED WEAKNESS AND REPORTED DIFFICULTIES IWTH AMBULATION. TOOK MEDICATIONS WITHOUT COMPLICATIONS. CHANGED DRESSING PER WOUND CARE ORDERS. LABLED/DATED/TIMED/INITIALED. PT REQUESTING TO GO HOME TODAY HER CULTURES CAME BACK NEGATIVE. WILL CNT. TO MONITOR. CL IN REACH, SRX2. NO VISITORS AT [facility]IST [facility]. PT HAD GENERALIZED SWELLING NOTED ON LOWER EXTREMITIES, GIVEN RENAL STATUS SL LOCKED PT FROM IVF. WILL INFROM WINDOWS SERVER SUPPORT TECHNICIAN.
[2020-07-13] MEDS ORDERED: VIBRAMYCIN 100100 MG PO (09:14)
[2020-07-13] MEDS ORDERED: CARDURA2 MG PO (09:14)
[2020-07-13] MEDS ORDERED: HYDRALAZINE HCL50 MG PO (09:15)
[2020-07-13] MEDS ORDERED: DAKIN'S 0.125%480 M1 TOPICAL (10:18)
--- NOTE | 2020-07-13 10:32 | MORECARE ---
CASE MANAGEMENT DISCHARGE SUMMARY PATIENT: KELLY ROBERTS UNIT: [id number] ADM DATE: 07/08/20 AGE: 70 : 49 SEX: F ROOM/BED: D.2101 AUTHOR: NABEEL PEREZ PHYSICIAN: REFERRING PHYSICIAN: RODRIGUE DOUGHERTY DO DATE OF SERVICE: 07/13/20 Discharge Plan Patient Name: KELLY ROBERTS Facility: [facility]:[place] : 1950 Planned Disposition: Home with Home Health Anticipated Discharge Date: Discharge Date: Expected LOS: Initial Reviewer: [email or web address] Initial Review Date: 07/10/2020 Generated: 07/13/20 11:32 am Comments DCP- Discharge Planning Updated by [email or web address]: Mariah Morrissey on 07/13/20 9:[address] Discharging home today with [facility]. I called patient per isolation protocol and informed of IMM, voiced understanding. States she is ready for discharge. I explained to her that she would need to be taught by home health her dressing changes or to have a teachable director of primary care when home health arrived. I faxed DC orders/summary to [facility] and informed Gio of discharge. Home today with [facility] home health. Nurse, Honey, informed to call [facility] to pharmacy. DCP- Discharge Planning Updated by [email or web address]: Mariah Morrissey on 07/10/20 2:[address] Patient Name: KELLY ROBERTS Admission Status: ER Accout number: [id number] Admission Date: 07-08-2020 : 1950 Admission Diagnosis:INFECT/INFLM REACTION DUE TO PERITON DIALYSIS CATHETER, Attending: ROXANNE Current LOS: 2 Anticipated DC Date: Planned Disposition: Home with Home Health Primary Insurance: MEDICARE A & B Discharge Planning Comments: CM called patient to complete initial dc planning assessment (per Isolation protocol, I called her room). CM educated patient on the CM role and verbal consent given by patient to complete assessment. Patient lives at home alone. At discharge patient plans to return and feels this is a safe discharge. CM discussed availability of home health, rehab services, and medical equipment. I informed her that Dr. Castro would like her to have home health for daily dressing changes. She states she has never had home health before and states that her doctor states she may be able to go home on Monday, so whoever can see her the soonest. I called [facility] home health and spoke with Gio and he states that he will make sure someone can see her on Monday if she goes home as early as tomorrow, clinical and order faxed. CM will need to fax final discharge orders and med rec to [facility] on discharge. CM will continue to follow and will assist as needed with dc plans/needs. Electricity Trading Analyst: Mariah Morrissey DCPIA - Discharge Planning Initial Assessment Updated by [email or web address]: Mariah Morrissey on 07/10/20 3:17 pm * Is the patient Alert and Oriented? Yes * How many steps to enter\exit or inside your home? 1/0 * PCP Dr. Kumar * Pharmacy [facility] * Preadmission Environment Home Alone * ADLs Independent * Equipment Bedside Commode Walker * List name and contact numbers for known caregivers / representatives who currently or will assist patient after discharge: Deyanira Vaca - DTR - [phone] * Verbal permission to speak to the caregivers and representatives has been obtained from the patient. Yes * Community resources currently utilized None * Additional services required to return to the preadmission environment? Yes * Can the patient safely return to the preadmission environment? Yes * Has this patient been hospitalized within the prior 30 days at any hospital? No Coverage Notice Reviewer: [email or web address] Carlo Morrissey Notice Issued Date-Time: 07/10/2020 15:25 Notice Type: Patient Choice Letter Notice Delivered To: Patient Relationship to Patient: Self Sustainable Systems Analyst Name: Delivery Method: PHONE - Phone [place] Days: Prior Verbal Notification: Recipient Understood Notice: Yes Recipient Signature: Med Rec Note Co-signed by Attending: Coverage Notice Comment: SHAMIKA for [facility], [facility] or [place] Reviewer: [email or web address] Carlo Morrissey Notice Issued Date-Time: 07/13/2020 10:25 Notice Type: IM Discharge Notice Notice Delivered To: Patient Relationship to Patient: Self Sustainable Systems Analyst Name: Delivery Method: HAND - Hand Delivered Loreto Days: Prior Verbal Notification: Recipient Understood Notice: Yes Recipient Signature: Yes Med Rec Note Co-signed by Attending: Coverage Notice Comment: Last DP export: 07/10/20 2:30 p Patient Name: KELLY ROBERTS Page [id number] at 1032 All edits/amendments must be made on the electronic document DICTATION DATE: 07/13/20 103 PIZZA DELIVERY: IRENA 07/13/20 103 RPT#: [id number] DC DATE: STATUS: ADM IN [facility] [address] [place] [address] END OF REPORT
--- NOTE | 2020-07-13 12:12 | NUR ---
PT ESCORTED OUT VIA WHEELCHIAR TO V. DAUGHTER DRIVING.
--- NOTE | 2020-07-14 12:34 | OP ---
PATIENT NAME: KELLY DAS MEDICAL RECORD: [id number] :[birth year] LOCATION:D.M2 D.2102 ADMISSION DATE:07/08/20 SURGEON: DIAN JAFFE MD DATE OF OPERATION: 07/09/2020 REFERRING PHYSICIAN: Eve Dougherty DO PREOPERATIVE DIAGNOSIS: Infected peritoneal dialysis catheter with subcutaneous catheter tract abscess. POSTOPERATIVE DIAGNOSIS: Infected peritoneal dialysis catheter with subcutaneous catheter tract abscess. OPERATION PERFORMED: Removal of peritoneal dialysis catheter and drainage of catheter tract abscess. SURGEON: Dian Jaffe MD ANESTHESIA: General with LMA per KNOTTER HAND. PREOPERATIVE NOTE: Ms. Das is a 70-year-old white female patient about 2 weeks status post laparoscopic implantation of a peritoneal dialysis catheter and she is now in sepsis with an infection with tunnel abscess. She is brought to the operating room at this time to remove the catheter and drain the abscess. DESCRIPTION OF PROCEDURE: Under anesthesia in supine position, the patient was prepped and draped in a sterile manner. The paramedian incision was reopened and the catheter exposed, clamped, and divided. The external segment removed and the internal segment with both cuffs was then removed and discarded. There was purulent fluid in the depths of the wound, which was cultured for aerobic and anaerobic organisms and swabbed for Gram stain. The wound was copiously irrigated with saline and then packed with gauze wet with Ancef, gentamicin, saline solution and covered by further sterile dry dressings. The tunnel was irrigated also via the catheter exit site and that site was also dressed wet to dry. The patient was awakened and in a stable condition returned to the recovery room. There, she said that her abdomen felt much better. Blood loss during the operation was zero. None was replaced. Sponges, instruments, and needles were accounted for. No drain was used and no surgical specimen was submitted for histopathology. Swabs were sent for aerobic and anaerobic wound cultures and Gram stain. NTS:[id number] Voice Confirmation ID: [id number] DOCUMENT ID: [id number] DIAN JAFFE MD at 1234 CC: EVE DOUGHERTY DO [id number] DICTATION DATE: 07/10/20 1249 AUDIOVISUAL AIDS TECHNICIAN: 07/10/20 2144 DIS IN 07/13/20 [place] [address] [place] [address]
--- NOTE | 2020-07-14 12:48 | MORECARE ---
CASE MANAGEMENT DISCHARGE SUMMARY PATIENT: KELLY ROBERTS UNIT: [id number] ADM DATE: 07/08/20 AGE: 70 : 48 SEX: F ROOM/BED: D.2101 AUTHOR: NABEEL PEREZ PHYSICIAN: REFERRING PHYSICIAN: RODRIGUE DOUGHERTY DO DATE OF SERVICE: 07/14/20 Discharge Plan Patient Name: KELLY ROBERTS Facility: [facility]:[place] : 1950 Planned Disposition: Home with Home Health Anticipated Discharge Date: Discharge Date: 07/13/2020 Expected LOS: 0 Initial Reviewer: [email or web address] Initial Review Date: 07/10/2020 Generated: 07/14/20 1:47 pm Comments DCP- Discharge Planning Updated by [email or web address]: Mariah Williamsoncayla on 07/13/20 9:[address] Discharging home today with [facility]. I called patient per isolation protocol and informed of IMM, voiced understanding. States she is ready for discharge. I explained to her that she would need to be taught by home health her dressing changes or to have a teachable overnight caregiver when home health arrived. I faxed DC orders/summary to [facility] and informed Gio of discharge. Home today with [facility] home health. Nurse, Honey, informed to call [facility] to pharmacy. DCP- Discharge Planning Updated by [id number]: Mariah Morrissey on 07/10/20 2:[address] Patient Name: KELLY ROBERTS Admission Status: ER Accout number: [id number] Admission Date: 07-08-2020 : 1950 Admission Diagnosis:INFECT/INFLM REACTION DUE TO [employer]ITON DIALYSIS CATHETER, Attending: ROXANNE Current LOS: 2 Anticipated DC Date: Planned Disposition: Home with Home Health Primary Insurance: MEDICARE A & B Discharge Planning Comments: CM called patient to complete initial dc planning assessment (per Isolation protocol, I called her room). CM educated patient on the CM role and verbal consent given by patient to complete assessment. Patient lives at home alone. At discharge patient plans to return and feels this is a safe discharge. CM discussed availability of home health, rehab services, and medical equipment. I informed her that Dr. Castro would like her to have home health for daily dressing changes. She states she has never had home health before and states that her doctor states she may be able to go home on Monday, so whoever can see her the soonest. I called [facility] home health and spoke with Gio and he states that he will make sure someone can see her on Monday if she goes home as early as tomorrow, clinical and order faxed. CM will need to fax final discharge orders and med rec to [facility] on discharge. CM will continue to follow and will assist as needed with dc plans/needs. Briquette Molder: Mariah Morrissey DCPIA - Discharge Planning Initial Assessment Updated by [email or web address]: Mariah Morrissey on 07/10/20 3:17 pm * Is the patient Alert and Oriented? Yes * How many steps to enter\exit or inside your home? 1/0 * PCP Dr. Kumar * Pharmacy [facility] * Preadmission Environment Home Alone * ADLs Independent * Equipment Bedside Commode Walker * List name and contact numbers for known caregivers / representatives who currently or will assist patient after discharge: Deyanira Vaca - DTR - [phone] * Verbal permission to speak to the caregivers and representatives has been obtained from the patient. Yes * Community resources currently utilized None * Additional services required to return to the preadmission environment? Yes * Can the patient safely return to the preadmission environment? Yes * Has this patient been hospitalized within the prior 30 days at any hospital? No Coverage Notice Reviewer: [id number] Carlo Morrissey Notice Issued Date-Time: 07/10/2020 15:25 Notice Type: Patient Choice Letter Notice Delivered To: Patient Relationship to Patient: Self Sterilization Tech Name: Delivery Method: PHONE - Phone [place] Days: Prior Verbal Notification: Recipient Understood Notice: Yes Recipient Signature: Med Rec Note Co-signed by Attending: Coverage Notice Comment: SHAMIKA for [facility], [facility] or [place] Reviewer: [id number] Carlo Morrissey Notice Issued Date-Time: 07/13/2020 10:25 Notice Type: IM Discharge Notice Notice Delivered To: Patient Relationship to Patient: Self Sterilization Tech Name: Delivery Method: HAND - Hand Delivered [place] Days: Prior Verbal Notification: Recipient Understood Notice: Yes Recipient Signature: Yes Med Rec Note Co-signed by Attending: Coverage Notice Comment: Last DP export: 07/13/20 9:32 a Patient Name: KELLY ROBERTS Page [phone] at 1248 All edits/amendments must be made on the electronic document DICTATION DATE: 07/14/201246 LITIGATION PARTNER: IRENA 07/14/201246 RPT#: [id number] DC DATE:07/13/20 STATUS: DIS IN [facility] [address] [place] [address] END OF REPORT
== END 2020-07-13 12:12 | disposition home health service (06) | DRG 907 ==
LOC: D.ER 16:05 → D.M2 18:48
PROVIDERS: Emergency Medicine; Internal Medicine; Surgery; ADMIT Internal Medicine; ATTEND Internal Medicine
PROC: 0WPG03Z Removal of Infusion Device from Peritoneal Cavity, Open Approach (ICD-10-PCS; principal; 2020-07-09 15:00)
DX: T85.71XA Infection and inflammatory reaction due to peritoneal dialysis catheter, initial encounter (principal); A41.9 Sepsis, unspecified organism; K65.9 Peritonitis, unspecified; I12.0 Hypertensive chronic kidney disease with stage 5 chronic kidney disease or end stage renal disease; N18.5 Chronic kidney disease, stage 5; E87.1 Hypo-osmolality and hyponatremia; Y83.9 Surgical procedure, unspecified as the cause of abnormal reaction of the patient, or of later complication, without mention of misadventure at the time of the procedure; E11.22 Type 2 diabetes mellitus with diabetic chronic kidney disease; E11.65 Type 2 diabetes mellitus with hyperglycemia; Z79.4 Long term (current) use of insulin; D63.1 Anemia in chronic kidney disease; I25.10 Atherosclerotic heart disease of native coronary artery without angina pectoris

== ENCOUNTER → 2020-08-05 19:28 | Outpatient (CLI) | payer MEDICARE, BC ==
[2020-07-09 16:57] VITALS: BMI 34.4
[~2020-08-05 19:28] MED LIST changes: +CARDURA2 MG PO; +DAKIN'S 0.125%480 M1 TOPICAL; +HYDRALAZINE HCL50 MG PO; +VIBRAMYCIN 100100 MG PO
[2020-08-05 20:03] LABS: NITRITE POSITIVE (NEGATIVE)
[2020-08-05 20:04] LABS: BILIRUBIN NEGATIVE (NEGATIVE); KETONE NEGATIVE (NEGATIVE); UROBILINOGEN NORMAL mg/dL (< 2)
[2020-08-05 20:05] LABS: BACTERIA MANY HPF (NONE SEEN); EPITHELIAL CELLS 0-5 /hpf (0-5)
== END | disposition home or self-care (01) ==
LOC: D.LABREF 19:28
PROVIDERS: ATTEND Specialist
DX: N39.0 Urinary tract infection, site not specified (principal)